=== PATIENT | male | born 1980 | race Hispanic/Latino ===

== ENCOUNTER 2023-07-22 15:20 | Outpatient (CLI) | payer BC | END 2023-07-22 15:21 | disposition home or self-care (01) | LOC: BICRAD 15:20 | PROVIDERS: ATTEND Family Medicine | DX: Z47.89 Encounter for other orthopedic aftercare (principal); Z98.890 Other specified postprocedural states ==

== ENCOUNTER 2023-08-19 10:44 | Outpatient (CLI) | payer BC | END 2023-08-19 10:45 | disposition home or self-care (01) | LOC: BICRAD 10:44 | PROVIDERS: ATTEND Family Medicine | DX: Z47.89 Encounter for other orthopedic aftercare (principal); Z98.890 Other specified postprocedural states ==